=== PATIENT | male | born 1930 | race Caucasian/White ===

== ENCOUNTER 2017-04-07 20:08 | Observation (INO) | payer MEDICARE, BC ==
[~2017-04-07] VITALS: Ht 175.3 cm; Wt 93.5 kg
[2017-04-07 20:21] VITALS: BP 142/71
[2017-04-07 20:39] VITALS: BP 142/71
[2017-04-07] MEDS ORDERED: TENORMIN50 M1 PO (22:18)
[2017-04-07] MEDS ORDERED: GLUCOSAMINE & C1 CA2 PO (22:19)
[2017-04-07] MEDS ORDERED: ADULT LOW DOSE81 MG PO (22:19)
[2017-04-07] MEDS ORDERED: PRILOSEC 20MG20 MG PO (22:19)
[2017-04-07] MEDS ORDERED: MAGNESIUM OXID200 MG PO (22:20)
[2017-04-07 22:54] VITALS: BP 94/44
[2017-04-08 03:17] VITALS: BP 143/74
[2017-04-08 06:32] VITALS: BP 143/84
[2017-04-08 10:59] VITALS: BP 133/70
[2017-04-08 15:00] VITALS: BP 141/67
[2017-04-08 18:03] VITALS: BP 150/71
[2017-04-08 23:00] VITALS: BP 129/83
[2017-04-09 02:52] VITALS: BP 152/77
[2017-04-09 06:18] VITALS: BP 120/66
[2017-04-09] MEDS ORDERED: LEVAQUIN 750MG750 M1 PO (10:50)
[2017-04-09 11:37] VITALS: BP 115/66
[2017-04-09] MEDS ORDERED: XARELTO15 MG PO (11:41)
== END 2017-04-09 12:17 | disposition home or self-care (01) ==
LOC: MED/SURG 20:08
PROVIDERS: ADMIT Family Medicine
DX: D72.825 Bandemia (principal); R11.2 Nausea with vomiting, unspecified; I10 Essential (primary) hypertension; K21.9 Gastro-esophageal reflux disease without esophagitis; Z87.891 Personal history of nicotine dependence; Z79.82 Long term (current) use of aspirin; R31.29 Other microscopic hematuria; R06.02 Shortness of breath; R60.9 Edema, unspecified; I48.91 Unspecified atrial fibrillation
CPT/HCPCS: G0378; G0379; J1956; J7030

== ENCOUNTER → 2017-04-07 | Outpatient (CLI) | payer MEDICARE, BC ==
[~2017-04-07] MED LIST: ADULT LOW DOSE81 MG PO; GLUCOSAMINE & C1 CA2 PO; HCTZ 25MG25 MG PO; LEVAQUIN 750MG750 M1 PO; MAGNESIUM OXID200 MG PO; PRILOSEC 20MG20 MG PO; TENORMIN50 M1 PO; XARELTO15 MG PO
[2017-06-21 14:47] VITALS: BP 118/54
== END ==
LOC: LAB 18:49

== ENCOUNTER 2017-04-12 11:06 | Emergency (ER) | payer MEDICARE, BC ==
[~2017-04-12] VITALS: Wt 93.9 kg
[~2017-04-12 11:06] MED LIST changes: -HCTZ 25MG25 MG PO
[2017-04-12] MEDS ORDERED: XARELTO15 MG PO (13:53)
[2017-04-12] MEDS ORDERED: HCTZ 25MG25 MG PO (13:56)
[2017-04-12 14:03] VITALS: BP 186/93
== END 2017-04-12 14:14 | disposition home or self-care (01) ==
LOC: ED 11:06
DX: I48.91 Unspecified atrial fibrillation (principal); I50.9 Heart failure, unspecified; R60.9 Edema, unspecified; Z87.891 Personal history of nicotine dependence; Z79.82 Long term (current) use of aspirin; K21.9 Gastro-esophageal reflux disease without esophagitis
CPT/HCPCS: Q9967

== ENCOUNTER → 2017-04-12 | Outpatient (CLI) | payer MEDICARE, BC ==
[2017-04-09 11:37] VITALS: BP 115/66
== END ==
LOC: LAB 09:40
DX: R06.02 Shortness of breath (principal); M79.669 Pain in unspecified lower leg; R60.0 Localized edema; I48.91 Unspecified atrial fibrillation; Z09 Encounter for follow-up examination after completed treatment for conditions other than malignant neoplasm

== ENCOUNTER → 2017-04-24 | Outpatient (CLI) | payer MEDICARE, BC ==
[2017-04-12 14:03] VITALS: BP 186/93
[~2017-04-24] MED LIST changes: +HCTZ 25MG25 MG PO
== END ==
LOC: RAD 15:00 → VAS 15:39
DX: I48.1 Persistent atrial fibrillation (principal); I65.21 Occlusion and stenosis of right carotid artery; I65.22 Occlusion and stenosis of left carotid artery

== ENCOUNTER → 2017-04-26 | Outpatient (CLI) | payer MEDICARE, BC ==
[2017-04-12 14:03] VITALS: BP 186/93
== END ==
LOC: VAS 16:16
DX: I65.21 Occlusion and stenosis of right carotid artery (principal); I65.22 Occlusion and stenosis of left carotid artery; I48.91 Unspecified atrial fibrillation; I25.10 Atherosclerotic heart disease of native coronary artery without angina pectoris; I35.1 Nonrheumatic aortic (valve) insufficiency; I07.1 Rheumatic tricuspid insufficiency; I37.1 Nonrheumatic pulmonary valve insufficiency

== ENCOUNTER → 2017-04-30 | Outpatient (CLI) | payer MEDICARE, BC ==
[2017-04-12 14:03] VITALS: BP 186/93
== END ==
LOC: VAS 16:10
DX: I48.1 Persistent atrial fibrillation (principal)

== ENCOUNTER → 2017-05-04 | Outpatient (CLI) | payer MEDICARE, BC ==
[2017-04-12 14:03] VITALS: BP 186/93
== END ==
LOC: CARDREHAB 07:12
DX: I48.91 Unspecified atrial fibrillation (principal); I87.1 Compression of vein; I10 Essential (primary) hypertension; E78.5 Hyperlipidemia, unspecified; Z86.79 Personal history of other diseases of the circulatory system; E78.00 Pure hypercholesterolemia, unspecified
CPT/HCPCS: A9500

== ENCOUNTER → 2017-05-24 | Outpatient (CLI) | payer MEDICARE, BC | LOC: RAD 09:36 | DX: I77.1 Stricture of artery (principal); I65.29 Occlusion and stenosis of unspecified carotid artery | CPT/HCPCS: Q9967 ==

== ENCOUNTER → 2017-06-01 | Outpatient (CLI) | payer MEDICARE, BC | LOC: LAB 09:36 | DX: R60.0 Localized edema (principal) ==

== ENCOUNTER → 2017-06-21 | Outpatient (CLI) | payer MEDICARE, BC ==
[~2017-06-21] VITALS: Ht 175.3 cm; Wt 89.1 kg
[2017-06-21 14:47] VITALS: BP 118/54
== END ==
LOC: AMSURD 14:33
DX: I48.2 Chronic atrial fibrillation (principal)

== ENCOUNTER → 2018-02-07 | Outpatient (CLI) | payer MEDICARE, BC ==
[2017-06-21 14:47] VITALS: BP 118/54
[2018-02-07 17:39] LABS: D-DIMER 0.97 mg/L FEU (0.15-0.50)
== END ==
LOC: LAB 16:43
PROVIDERS: Nurse Practitioner Family
DX: R22.42 Localized swelling, mass and lump, left lower limb (principal)

== ENCOUNTER → 2018-02-08 | Outpatient (CLI) | payer MEDICARE, BC ==
[2017-06-21 14:47] VITALS: BP 118/54
== END ==
LOC: RAD 07:53
DX: M79.89 Other specified soft tissue disorders (principal); R79.89 Other specified abnormal findings of blood chemistry; Z86.79 Personal history of other diseases of the circulatory system

== ENCOUNTER → 2018-07-22 | Outpatient (CLI) | payer MEDICARE, BC ==
[2017-06-21 14:47] VITALS: BP 118/54
[2018-07-22 10:43] LABS: ALBUMIN 4.2 g/dL (3.5-5.0); CALCIUM 9.3 mg/dL (8.4-10.2); POTASSIUM 3.8 mmol/L (3.6-5.0); TOTAL BILIRUBIN 0.9 mg/dL (0.2-1.3); TOTAL PROTEIN 7.4 g/dL (6.3-8.2)
[2018-07-22 10:58] LABS: HEMATOCRIT 35.3 % (42.0-52.0); HEMOGLOBIN 11.6 g/dL (13.5-18.0); MEAN CELL VOLUME 92 fl (78-100); MEAN CORPUSCULAR HEMOGLOBIN 30 pg (27-31); MEAN CORPUSCULAR HGB CONC 33 g/dL (33-37); MEAN PLATELET VOLUME 10.7 fl (7.4-10.4); PLATELET COUNT 227 K/mm3 (130-400); RED BLOOD COUNT 3.82 M/mm3 (4.20-5.60); RED CELL DISTRIBUTION WIDTH 14.7 % (11.5-14.5); WHITE BLOOD COUNT 6.1 K/mm3 (4.8-10.8)
[2018-07-22 11:56] LABS: ACANTHROCYTES 2+; LYMPHOCYTE 19 % (20-51); MONOCYTE 11 % (3-10); NEUTROPHILS 66 % (42-75)
[2018-07-22 11:57] LABS: ERYTHROCYTE SEDIMENTATION RATE 5 mm/hr (0-20)
== END ==
LOC: LAB 10:17
PROVIDERS: Internal Medicine
DX: Z12.5 Encounter for screening for malignant neoplasm of prostate (principal); I10 Essential (primary) hypertension; R20.2 Paresthesia of skin; I65.29 Occlusion and stenosis of unspecified carotid artery

== ENCOUNTER → 2019-01-13 | Outpatient (CLI) | payer MEDICARE, BC ==
[2017-06-21 14:47] VITALS: BP 118/54
[2019-01-13 10:35] LABS: EOS # 0.2 (0.04-0.40); HEMATOCRIT 38.9 % (42.0-52.0); HEMOGLOBIN 12.8 g/dL (13.5-18.0); LYMPH# 1.3 (1.50-4.00); MEAN CELL VOLUME 93 fl (78-100); MEAN CORPUSCULAR HEMOGLOBIN 31 pg (27-31); MEAN CORPUSCULAR HGB CONC 33 g/dL (33-37); MONO # 0.7 (0.20-0.80); PLATELET COUNT 220 K/mm3 (130-400); WHITE BLOOD COUNT 6.3 K/mm3 (4.8-10.8)
[2019-01-13 10:53] LABS: ALBUMIN 4.2 g/dL (3.5-5.0); CALCIUM 9.6 mg/dL (8.4-10.2); POTASSIUM 4.6 mmol/L (3.6-5.0); TOTAL BILIRUBIN 0.9 mg/dL (0.2-1.3); TOTAL PROTEIN 7.6 g/dL (6.3-8.2)
== END ==
LOC: RAD 10:15
PROVIDERS: Internal Medicine
DX: M17.12 Unilateral primary osteoarthritis, left knee (principal); M25.462 Effusion, left knee; I70.202 Unspecified atherosclerosis of native arteries of extremities, left leg; I48.91 Unspecified atrial fibrillation; I10 Essential (primary) hypertension

== ENCOUNTER → 2019-07-24 | Outpatient (CLI) | payer MEDICARE, BC ==
[2019-06-18 20:14] VITALS: BP 152/83
[~2019-07-24] MED LIST changes: +AMIODARONE HCL100 MG PO; +ATORVASTATIN CA80 MG PO; +CLOPIDOGREL75 M2 PO; +FLOMAX0.4 MG PO; +MULTIVITAMIN1 SGL PO
[2019-07-24 11:48] LABS: CALCIUM 9.6 mg/dL (8.3-10.5)
[2019-07-24 11:52] LABS: TOTAL BILIRUBIN 1.3 mg/dL (0.2-1.2)
[2019-07-24 12:06] LABS: EOS # 0.1 (0.04-0.40); EOS % 2.3 % (0.0-4.0); HEMATOCRIT 37.3 % (42.0-52.0); HEMOGLOBIN 12.6 g/dL (13.5-18.0); MEAN CELL VOLUME 91 fl (78-100); MEAN CORPUSCULAR HEMOGLOBIN 31 pg (27-31); MEAN CORPUSCULAR HGB CONC 34 g/dL (33-37); MEAN PLATELET VOLUME 10.7 fl (7.4-10.4); MONO # 0.6 (0.20-0.80); NEU # 3.9 (1.40-6.50); PLATELET COUNT 213 K/mm3 (130-400); RED BLOOD COUNT 4.09 M/mm3 (4.20-5.60); RED CELL DISTRIBUTION WIDTH 13.9 % (11.5-14.5); WHITE BLOOD COUNT 5.7 K/mm3 (4.8-10.8)
[2019-07-24 13:09] LABS: ERYTHROCYTE SEDIMENTATION RATE 5 mm/hr (0-20)
[2019-07-24 23:43] LABS: TESTOSTERONE 403 ng/dL (221-716)
== END ==
LOC: LAB 11:09
PROVIDERS: Internal Medicine
DX: Z12.5 Encounter for screening for malignant neoplasm of prostate (principal); Z12.11 Encounter for screening for malignant neoplasm of colon; I48.2 Chronic atrial fibrillation; D64.9 Anemia, unspecified; I65.21 Occlusion and stenosis of right carotid artery; I10 Essential (primary) hypertension; N52.9 Male erectile dysfunction, unspecified; R20.2 Paresthesia of skin

== ENCOUNTER → 2019-08-21 | Outpatient (CLI) | payer MEDICARE, BC ==
[2019-06-18 20:14] VITALS: BP 152/83
== END ==
LOC: RAD 10:50
DX: I65.21 Occlusion and stenosis of right carotid artery (principal)

== ENCOUNTER 2020-01-21 16:55 | Emergency (ER) | payer MEDICARE, BC ==
[~2020-01-21] VITALS: Ht 175.3 cm; Wt 96.8 kg
[2020-01-21 18:54] LABS: EOS # 0.1 (0.04-0.40); EOS % 1.7 % (0.0-4.0); HEMATOCRIT 39.6 % (42.0-52.0); HEMOGLOBIN 13.1 g/dL (13.5-18.0); MEAN CELL VOLUME 93 fl (78-100); MEAN CORPUSCULAR HEMOGLOBIN 31 pg (27-31); MEAN CORPUSCULAR HGB CONC 33 g/dL (33-37); MEAN PLATELET VOLUME 10.4 fl (7.4-10.4); MONO # 0.7 (0.20-0.80); NEU # 4.7 (1.40-6.50); PLATELET COUNT 214 K/mm3 (130-400); RED BLOOD COUNT 4.28 M/mm3 (4.20-5.60); RED CELL DISTRIBUTION WIDTH 13.7 % (11.5-14.5); WHITE BLOOD COUNT 6.5 K/mm3 (4.8-10.8)
[2020-01-21 19:32] LABS: POTASSIUM 4.1 mmol/L (3.5-5.1)
[2020-01-21 19:33] LABS: CALCIUM 9.6 mg/dL (8.3-10.5)
[2020-01-21 20:16] VITALS: BP 154/81
== END 2020-01-21 20:16 | disposition home or self-care (01) ==
LOC: ED 16:55
PROVIDERS: Physician Assistant
DX: I10 Essential (primary) hypertension (principal); I25.10 Atherosclerotic heart disease of native coronary artery without angina pectoris; E78.5 Hyperlipidemia, unspecified; Z95.0 Presence of cardiac pacemaker; Z79.82 Long term (current) use of aspirin; Z79.02 Long term (current) use of antithrombotics/antiplatelets

== ENCOUNTER 2020-01-24 21:10 | Emergency (ER) | payer MEDICARE, BC ==
[~2020-01-24] VITALS: Ht 175.3 cm; Wt 93.2 kg
[2020-01-24 22:13] LABS: POTASSIUM 3.7 mmol/L (3.5-5.1); SODIUM 132 mmol/L (136-145)
[2020-01-24 22:14] LABS: CALCIUM 9.5 mg/dL (8.3-10.5)
[2020-01-24 22:15] LABS: GLUCOSE 106 mg/dL (75-110)
[2020-01-24 22:16] LABS: CARBON DIOXIDE 25 mmol/L (23-31)
[2020-01-24 22:48] LABS: TROPONIN-I < 0.03 ng/mL (<0.030)
[2020-01-24 23:01] VITALS: BP 160/86
== END 2020-01-24 23:01 | disposition home or self-care (01) ==
LOC: ED 21:10
PROVIDERS: Family Medicine
DX: I10 Essential (primary) hypertension (principal); I48.91 Unspecified atrial fibrillation; Z95.0 Presence of cardiac pacemaker; Z79.02 Long term (current) use of antithrombotics/antiplatelets; Z79.82 Long term (current) use of aspirin